=== PATIENT | female | born 1965 | race American Indian/Alaskan Native ===

== ENCOUNTER 2017-10-03 19:27 | Emergency (ER) | payer MEDICAID ==
--- NOTE | 2017-10-03 19:48 | C.PDOC ---
History Of Present Illness <Rachel Cook - Last Filed: 10/03/17 19:58> <Janeen Perry - Last Filed: 10/04/17 02:49> Patient is a 52 year old AA female with past medical history of hepatitis C and HTN, who presents to the ED with complaints of chest pain. Patient reports that her chest pain started yesterday when she sitting at [facility]; describing it as a 10/10 squeezing reproducible chest pain that is localized to the upper left chest wall with no radiation. Patient admits nausea, vomiting, palpitation , shortness of breath, pleuritic chest pain, headache, and visual disturbance. Patient reports that has been using heroin for the past year, last used yesterday and today ( 12 bags intranasal), cocaine use and heavy alcohol use. (Rachel Cook) History Per: Patient History/Exam Limitations: no limitations Onset/Duration Of Symptoms: Days Current Symptoms Are (Timing): Still Present Severity: Moderate Pain Scale Rating Of: 7 Quality: Squeezing Associated Symptoms: Nausea, Dyspnea Exacerbating Factors: Deep Breathing Alleviating Factors: None Recent travel outside of the [place]: No Additional History Per: Patient <Rachel Cook - Last Filed: 10/03/17 19:58> <Janeen Perry - Last Filed: 10/04/17 02:49> Chief Complaint (Nursing): Chest Pain Past Medical History - Medical History PMH: Hepatitis, HTN Surgical History: No Surg Hx Family History: States: Unknown Family Hx - Social History Hx Tobacco Use: Yes (1/2 PPD ) Hx Alcohol Use: Yes (8-10 beers and 1/2 pint of ENJ daily ) Hx Substance Use: Yes (Heroin and Cocaine ) <Rachel Cook - Last Filed: 10/03/17 19:58> - Medical History PMH: HTN - Social History Hx Tobacco Use: Yes Hx Alcohol Use: Yes Hx Substance Use: Yes - Immunization History Hx Tetanus Toxoid Vaccination: No Hx Influenza Vaccination: No Hx Pneumococcal Vaccination: No <Janeen Perry - Last Filed: 10/04/17 02:49> Vital Signs: Last Vital Signs Temp 98.5 F 10/03/17 23:31 Pulse 93 H 10/03/17 23:31 Resp 16 10/03/17 23:31 BP 143/90 10/03/17 23:31 Pulse Ox 98 10/03/17 23:31 Review Of Systems Constitutional: Negative for: Fever, Chills, Sweats, Weakness Eyes: Positive for: Vision Change. Negative for: Pain, Eyelid Inflammation, Redness Cardiovascular: Positive for: Chest Pain, Palpitations. Negative for: Orthopnea , Paroxysmal Noc. Dyspnea, Edema, Light Headedness Respiratory: Positive for: Shortness of Breath, Pleuritic Pain Gastrointestinal: Positive for: Nausea, Vomiting, Abdominal Pain. Negative for : Diarrhea, Constipation, Melena Neurological: Negative for: Weakness, Confusion, Dizziness <JoeyHenrietta palaciosrickey E - Last Filed: 10/03/17 19:58> Physical Exam - Physical Exam Appears: No Acute Distress Skin: Normal Color, No Dry, No Diaphoretic Head: Atraumatic, Normacephalic Eye(s): bilateral: EOMI Chest: Tenderness Cardiovascular: Rhythm Regular, No Murmur Respiratory: Normal Breath Sounds, No Accessory Muscle Use, No Rales, No Rhonchi , No Wheezing Gastrointestinal/Abdominal: Normal Exam, Bowel Sounds, Soft, Tenderness Back: Normal Inspection Extremity: No Tenderness, No Pedal Edema, No Calf Tenderness Neurological/Psych: Oriented x3, Normal Speech <Koki Cookosito - Last Filed: 10/03/17 19:58> ED Course And Treatment ECG Rhythm: Sinus Rhythm ECG Interpretation: Abnormal Interpretation Of ECG: Voltage criteria for left ventricular hyperthrophy. Early repolarization Rate From EC <Rachel Cook - Last Filed: 10/03/17 19:58> - Laboratory Results Result Diagrams: 10/03/17 20:03 10/03/17 20:03 - CT Scan/US CTA chest Other Rad Studies (CT/US): Read By Radiologist, Radiology Report Reviewed CT/US Interpretation: EXAM: CT Angiography Chest With Intravenous Contrast. EXAM DATE/TIME: 10/03/2017 8:43 PM. CLINICAL HISTORY: 52 years old, female; Pain; Chest pressure; Additional info: Elevated d-dimer. TECHNIQUE: Axial computed tomographic angiography images of the chest with intravenous contrast using. pulmonary embolism protocol. All CT scans at this facility use one or more dose reduction. techniques, viz.: automated exposure control; ma/kV adjustment per patient size (including targeted. exams where dose is matched to indication; i.e. head); or iterative reconstruction technique. MIP reconstructed images were created and reviewed. Coronal and sagittal reformatted images were created and reviewed. CONTRAST: 100 mL of [id number] administered intravenously. COMPARISON: There are no prior studies for comparison. The. FINDINGS: Artifacts: Streak artifact from dental fillings degrades image quality. Heart, aorta and Pulmonary arteries: Heart size is normal.There is trace fluid in pericardial. recesses. There are coronary artery calcificationsThere is no aneurysm or dissection. There isperfusion of the 3 arch vessels. There are no central pulmonary emboli. Patient motion and bolus. timing limits evaluation of peripheral vessels. Lungs and pleural spaces: Trachea and main bronchi are patent.There is no pneumothorax. There. is no lobar or segmental consolidation. There is minimal scarring and atelectasis at the lung bases. There occasional cysts at the lung bases. There are no effusions. There is a 3.6 mm nodule in the. medial left costophrenic sulcus. There is a 3.1 mm nodular opacity in the low right costophrenic. sulcus. There is minimal nodular pleural thickening. Mediastinum : The esophagus is not optimally evaluated. There are no pathologically enlarged. mediastinal or hilar nodes. Thyroid: Thyroid is not optimally demonstrated. Bones/joints: There are sclerotic lesions in multiple vertebral body. There is compression deformity. at T6. There is sclerotic lesions in the posterior elements at L2. Soft tissues: unremarkable. Upper abdomen: There is upper abdominal adenopathy. Gallbladder is distended with a small. stone. Common duct is prominent. IMPRESSION: Limited by bolus timing and patient motion, no central pulmonary emboli, no aortic. aneurysm; multiple sclerotic skeletal lesion suspicious for metastatic disease; T6 compression. fracture; small bibasilar pulmonary nodules, correlate with possible malignancy; upper abdominal. adenopathyThank you for allowing us to participate in the care of your patient. Dictated and Authenticated by: Amanda Vallejo MD. 10/03 10:59 PM Eastern Time ([place] & [place]) <Janeen Perry - Last Filed: 10/04/17 02:49> Medical Decision Making <Rachel Cook - Last Filed: 10/03/17 19:58> <Janeen Perry - Last Filed: 10/04/17 02:49> Medical Decision Making: Patient noted to have multiple sclerotic masses in the region, pulmonary nodules may represent neoplasms. Patient was informed about the pulmonary nodule that she should be further followed up with. Patient was given information to the local clinic for follow up care. (Janeen Perry) Disposition <Rachel Cook - Last Filed: 10/03/17 19:58> - Disposition Disposition Time: 02:49 <Janeen Perry - Last Filed: 10/04/17 02:49> - Disposition Referrals: [facility] [Outside] Disposition: HOME/ ROUTINE Condition: FAIR Instructions: Pleuritic Chest Pain, CT Scan, Chest, Drug Abuse and Drug Addiction (DC), Multiple Pulmonary Nodules Forms: [employer] (Qatari) Print Language: WELSH - Clinical Impression Clinical Impression: Pleuritic pain
[2017-10-03 20:06] LABS: BASO # 0.2 K/uL (0.0-0.2); BASO % 1.5 % (0.0-2.0); EOS # 0.4 K/uL (0.0-0.7); EOS % 3.2 % (0.0-4.0); HEMOGLOBIN 9.6 g/dL (11.0-16.0); LYMPH # 3.2 K/uL (1.0-4.3); LYMPH % 25.8 % (20.0-40.0); MEAN CELL VOLUME 79.4 fL (81.0-99.0); MEAN CORPUSCULAR HEMOGLOBIN 25.4 pg (27.0-31.0); MEAN CORPUSCULAR HGB CONC 31.9 g/dL (33.0-37.0); MEAN PLATELET VOLUME 9.2 fL (7.2-11.7); MONO # 0.4 K/uL (0.0-0.8); MONO % 3.4 % (0.0-10.0); NEUT # 8.3 K/uL (1.8-7.0); NEUT % 66.1 % (50.0-75.0); NRBC % 0.2 % (0.0-2.0); RBC 3.8 Mil/uL (3.80-5.20); RED CELL DISTRIBUTION WIDTH 20.8 % (11.5-14.5); WHITE BLOOD COUNT 12.6 K/uL (4.8-10.8)
[2017-10-03 20:10] VITALS: RESP 16
[2017-10-03 20:18] LABS: ALB/GLOB RATIO 0.9 (1.0-2.1); ALBUMIN 4.1 g/dL (3.5-5.0); ALT/SGPT 38 U/L (9-52); AST/SGOT 36 U/L (14-36); BLOOD UREA NITROGEN 9 mg/dL (7-17); CALCIUM 8.9 mg/dl (8.6-10.4); GFR AFRICAN-AMERICAN > 60; GFR NON-AFRICAN AMERICAN > 60
[2017-10-03] MEDS ORDERED: Iodixanol 320 MG/ML 100 ML BOTTLE IV ONE (21:15)
[2017-10-03 21:45] LABS: BARBITURATES, UR NEGATIVE (NEGATIVE); BENZODIAZEPINES, UR NEGATIVE (NEGATIVE); PHENCYCLIDINE, UR NEGATIVE (NEGATIVE)
[2017-10-03 22:02] LABS: OPIATES, UR POSITIVE (NEGATIVE)
--- NOTE | 2017-10-03 23:00 | CT ---
EXAM: CT Angiography Chest With Intravenous Contrast EXAM DATE/TIME: 10/03/2017 8:43 PM CLINICAL HISTORY: 52 years old, female; Pain; Chest pressure; Additional info: Elevated d-dimer TECHNIQUE: Axial computed tomographic angiography images of the chest with intravenous contrast using pulmonary embolism protocol. All CT scans at this facility use one or more dose reduction techniques, viz.: automated exposure control; ma/kV adjustment per patient size (including targeted exams where dose is matched to indication; i.e. head); or iterative reconstruction technique. MIP reconstructed images were created and reviewed. Coronal and sagittal reformatted images were created and reviewed. CONTRAST: 100 mL of [id number] administered intravenously. COMPARISON: There are no prior studies for comparison. The FINDINGS: Artifacts: Streak artifact from dental fillings degrades image quality. Heart, aorta and Pulmonary arteries: Heart size is normal.There is trace fluid in pericardial recesses. There are coronary artery calcificationsThere is no aneurysm or dissection. There is perfusion of the 3 arch vessels. There are no central pulmonary emboli. Patient motion and bolus timing limits evaluation of peripheral vessels. Lungs and pleural spaces: Trachea and main bronchi are patent.There is no pneumothorax. There is no lobar or segmental consolidation. There is minimal scarring and atelectasis at the lung bases. There occasional cysts at the lung bases. There are no effusions. There is a 3.6 mm nodule in the medial left costophrenic sulcus. There is a 3.1 mm nodular opacity in the low right costophrenic sulcus. There is minimal nodular pleural thickening. Mediastinum: The esophagus is not optimally evaluated. There are no pathologically enlarged mediastinal or hilar nodes. Thyroid: Thyroid is not optimally demonstrated. Bones/joints: There are sclerotic lesions in multiple vertebral body. There is compression deformity at T6. There is sclerotic lesions in the posterior elements at L2. Soft tissues: unremarkable Upper abdomen: There is upper abdominal adenopathy. Gallbladder is distended with a small stone. Common duct is prominent. IMPRESSION: Limited by bolus timing and patient motion, no central pulmonary emboli, no aortic aneurysm; multiple sclerotic skeletal lesion suspicious for metastatic disease; T6 compression fracture; small bibasilar pulmonary nodules, correlate with possible malignancy; upper abdominal adenopathy
[2017-10-03 23:32] VITALS: BP 143/90; PULSE 93; TEMP 98.5; O2SAT 98
--- NOTE | 2017-10-04 23:34 | CARD ---
APPROVED REPORT EKG Measurement Heart [id number] <Conclusion> Normal sinus rhythm Voltage criteria for left ventricular hypertrophy Early repolarization Abnormal ECG
== END 2017-10-03 23:57 | disposition home or self-care (01) ==
LOC: C.ER 19:27
DX: R07.81 Pleurodynia (principal); I10 Essential (primary) hypertension; F17.210 Nicotine dependence, cigarettes, uncomplicated
CPT/HCPCS: 71046; 71275; 80053; 80320; 80324; 80345; 80346; 80349; 80353; 80358; 80361; 83992; 84484; 85025; 85378; 93005; 96374; 96376; 99285; J0360; Q9967